=== PATIENT | female | born 1935 | race Caucasian/White ===

== ENCOUNTER 2018-08-31 16:10 | Inpatient (IN) | payer OTHER ==
[~2018-08-31] VITALS: Ht 152.4 cm; Wt 72.6 kg
[~2018-08-31 16:10] MED LIST: ACET325T9 PO; ACET500T68 PO; AMIT25TA PO; ASPI325T8 PO; ATOR20TA58 PO; BENZ100C PO; BUDE10.2 IH; CALC1TAB PO; CARV3.12 PO; CARV6.2511 PO; CHOL100013 PO; CILO100T PO; CLOP75TA57 PO; FURO-68 PO; GLUC100018 PO; MELA1TAB13 PO; MELA3TAB2 PO; OMEG300C PO; OMEP20CA5 PO; SENN1TAB15 PO
[2018-08-31 18:41] LABS: BASO % 0 % (0-3); EOS # 0.1 x10^3/uL (0.0-0.7); EOS % 1 % (0-3); HEMATOCRIT 32.7 % (36.0-47.0); HEMOGLOBIN 9.8 g/dL (12.0-15.5); LYMPH # 0.9 x10^3/uL (1.0-4.8); LYMPH % 11 % (24-48); MEAN CORPUSCULAR HEMOGLOBIN 23 pg (25-35); MEAN CORPUSCULAR HGB CONC 30 g/dL (31-37); MEAN CORPUSCULAR VOLUME 76 fL (79-100); MONO # 0.8 x10^3/uL (0.0-1.1); MONO % 11 % (0-9); NEUT # 6.1 x10^3uL (1.8-7.7); NEUT % 77 % (31-73); PLATELET COUNT 200 x10^3/uL (140-400); RED BLOOD COUNT 4.29 x10^6/uL (3.50-5.40); RED CELL DISTRIBUTION WIDTH 17.9 % (11.5-14.5); WHITE BLOOD COUNT 7.9 x10^3/uL (4.0-11.0)
--- NOTE | 2018-08-31 18:43 | PHYS DOC ---
Past Medical History Past Medical History: CAD, COPD, CVA, Diabetes-Type II, Heart Disease Additional Past Medical Histor: Kidney disease, Borderline diabetes, Pacemaker , thoracic aortic aneurysm Past Surgical History: Coronary Bypass Surgery, Pacemaker, Tonsillectomy, Other Additional Past Surgical Histo: D&C, Cataracts, Alcohol Use: None Drug Use: None Adult General Chief Complaint Chief Complaint: CONSTIPATION HPI HPI Patient is a 82 year old female who presents to the ER with complaints of constipation for over a week. Pt states that she took a stool softener one day last week and she had a small BM after that. She denies any rectal pain, rectal bleeding, abdominal pain, nausea, vomiting, diarrhea, fever, or dysuria. Pt states that she has had a slight cough with some sputum produced. She denies any shortness of breath or chest pain. Pt currently denies any pain. Review of Systems Review of Systems Constitutional: Denies fever or chills [] Eyes: Denies changes HENT: Denies nasal congestion or sore throat [] Respiratory: See HPI Cardiovascular: No additional information not addressed in HPI [] GI: Denies abdominal pain, nausea, vomiting, bloody stools or diarrhea; see HPI[ ] : Denies dysuria or hematuria [] Musculoskeletal: Denies back pain Integument: Denies rash Neurologic: Denies headache, focal weakness or sensory changes [] Complete systems were reviewed and found to be within normal limits, except as documented in this note. Current Medications Current Medications Current Medications Medications (Trade) Dose Ordered Sig/Issac Start Time Stop Time Status Last Admin Dose Admin Potassium Chloride (Klor-Con) 40 meq 1X ONCE 08/31/18 19:15 08/31/18 19:16 DC 08/31/18 19:17 40 MEQ Allergies Allergies Allergies Coded Allergies Type Severity Reaction Last Updated Verified Penicillins Allergy Intermediate 05/31/14 Yes hydroxychloroquine Allergy Intermediate 05/31/14 Yes Physical Exam Physical Exam Constitutional: Well developed, well nourished, no acute distress, non-toxic appearance. [] HENT: Normocephalic, atraumatic, bilateral external ears normal, oropharynx moist, nose normal. [] Eyes: conjunctiva normal, no discharge. [] Neck: Normal range of motion, no stridor. [] Cardiovascular:Heart rate regular rhythm, no murmur [] Lungs & Thorax: Bilateral breath sounds clear to auscultation in upper lobes and right lobes; diminished with crackle in left lower lobes, [] Abdomen: Bowel sounds normal, soft, no tenderness, no masses, no pulsatile masses. [] Skin: Warm, dry, no erythema, no rash. [] Extremities: No cyanosis, ROM intact, no edema. [] Neurologic: Alert and oriented X 3, no focal deficits noted. [] Psychologic: Affect normal, judgement normal, mood normal. [] Current Patient Data Vital Signs Vital Signs Date Time Temp Pulse Resp B/P (MAP) Pulse Ox O2 Delivery O2 Flow Rate FiO2 08/31/18 19:28 63 19 142/66 (91) 94 Room Air 08/31/18 16:50 98.0 98.0 Lab Values Laboratory Tests Test 08/31/18 18:30 White Blood Count 7.9 x10^3/uL (4.0-11.0) Red Blood Count 4.29 x10^6/uL (3.50-5.40) Hemoglobin 9.8 g/dL (12.0-15.5) L Hematocrit 32.7 % (36.0-47.0) L Mean Corpuscular Volume 76 fL (79-100) L Mean Corpuscular Hemoglobin 23 pg (25-35) L Mean Corpuscular Hemoglobin Concent 30 g/dL (31-37) L Red Cell Distribution Width 17.9 % (11.5-14.5) H Platelet Count 200 x10^3/uL (140-400) Neutrophils (%) (Auto) 77 % (31-73) H Lymphocytes (%) (Auto) 11 % (24-48) L Monocytes (%) (Auto) 11 % (0-9) H Eosinophils (%) (Auto) 1 % (0-3) Basophils (%) (Auto) 0 % (0-3) Neutrophils # (Auto) 6.1 x10^3uL (1.8-7.7) Lymphocytes # (Auto) 0.9 x10^3/uL (1.0-4.8) L Monocytes # (Auto) 0.8 x10^3/uL (0.0-1.1) Eosinophils # (Auto) 0.1 x10^3/uL (0.0-0.7) Basophils # (Auto) 0.0 x10^3/uL (0.0-0.2) Platelet Estimate Adequate (ADEQUATE) Polychromasia Slight Hypochromasia Slight Anisocytosis Slight Sodium Level 140 mmol/L (136-145) Potassium Level 2.5 mmol/L (3.5-5.1) *L Chloride Level 93 mmol/L (98-107) L Carbon Dioxide Level 36 mmol/L (21-32) H Anion Gap 11 (6-14) Blood Urea Nitrogen 75 mg/dL (7-20) H Creatinine 2.1 mg/dL (0.6-1.0) H Estimated GFR (Cockcroft-Gault) 22.5 BUN/Creatinine Ratio 36 (6-20) H Glucose Level 130 mg/dL (70-99) H Calcium Level 9.6 mg/dL (8.5-10.1) Magnesium Level 2.6 mg/dL (1.8-2.4) H Total Bilirubin 0.7 mg/dL (0.2-1.0) Aspartate Amino Transferase (AST) 20 U/L (15-37) Alanine Aminotransferase (ALT) 12 U/L (14-59) L Alkaline Phosphatase 94 U/L (46-116) Total Protein 8.2 g/dL (6.4-8.2) Albumin 3.9 g/dL (3.4-5.0) Albumin/Globulin Ratio 0.9 (1.0-1.7) L Thyroid Stimulating Hormone (TSH) 1.325 uIU/mL (0.358-3.74) Laboratory Tests 08/31/18 18:30 Laboratory Tests 08/31/18 18:30 EKG EKG [] Radiology/Procedures Radiology/Procedures PROCEDURE: KUB EXAM: PA and Lateral Views of the Chest DATE: 08/31/2018 6:41 PM INDICATION: CONSTIPATION, HX OF AORTIC ANEURYSM, PACEMAKER COMPARISON: No Prior FINDINGS: Moderate cardiomegaly. Aorta is tortuous. Emphysematous changes bilaterally. No lobar consolidation. Trace left pleural effusion. No pneumothorax. Biapical pleural/parenchymal/thickening. Cardiac generator pack obscures a portion of the left chest with leads in stable position. IMPRESSION: No evidence for acute cardiopulmonary process. EXAM: Supine AP view of the abdomen DATE: 08/31/2018 6:41 PM INDICATION: CONSTIPATION, HX OF AORTIC ANEURYSM, PACEMAKER COMPARISON: No Prior FINDINGS: No abnormal small or large bowel dilatation. Moderate colonic stool content. No abnormal soft tissue mass effect. No suspicious calcifications are seen. Evaluation for free intraperitoneal gas is limited on this supine exam. Right hip joint degenerative changes are seen. IMPRESSION: 1. No evidence for bowel obstruction. 2. Moderate colonic stool content is seen. [] Course & Med Decision Making Course & Med Decision Making Pertinent Labs and Imaging studies reviewed. (See chart for details) Dx: hypokalemia, CRF CXR showed no acute findings; KUB no bowel obstruction, moderate colonic stool present, hgb 9.8, hct 32.7, K+ 2.5, Cl 93, Bun 75, Nut Orchardist 2.1, Mg 2.6, TSh 1.325 Pt was given 40 meq of KCl in the ER and a stool softener was ordered per pt request. 1930- spoke with Dr. Spain who will admit patient for hypokalemia and CRF [] Dragon Disclaimer Dragon Disclaimer This electronic medical record was generated, in whole or in part, using a voice recognition dictation system. Departure Departure Impression: Primary Impression: Hypokalemia Additional Impression: CRF (chronic renal failure) Disposition: ADMITTED INPATIENT Admitting Physician: Gigi Spain Condition: STABLE Referrals: YOHAN COHEN MD (PCP) Problem Qualifiers Additional Impression: CRF (chronic renal failure) Chronic kidney disease stage: unspecified stage Qualified Codes: N18.9 - Chronic kidney disease, unspecified KELSEY DELGADO [facility] Aug 31, 2018 18:43
[2018-08-31 18:48] LABS: ALBUMIN 3.9 g/dL (3.4-5.0); ALBUMIN/GLOBULIN RATIO 0.9 (1.0-1.7); CALCIUM 9.6 mg/dL (8.5-10.1); CREATININE 2.1 mg/dL (0.6-1.0); GFR 22.5; TOTAL BILIRUBIN 0.7 mg/dL (0.2-1.0); TOTAL PROTEIN 8.2 g/dL (6.4-8.2)
[2018-08-31 18:55] LABS: POTASSIUM 2.5 mmol/L (3.5-5.1)
[2018-08-31 19:10] LABS: ANISOCYTOSIS SLIGHT; HYPOCHROMIA SLIGHT; PLT ESTIMATE ADEQUATE (ADEQUATE); POLYCHROMASIA SLIGHT
[2018-08-31] MEDS ORDERED: POTASSIUM CHLORIDE 20 MEQ TABLET.ER. PO ONE (19:15)
--- NOTE | 2018-08-31 20:27 | RAD ---
EXAM: PA and Lateral Views of the Chest DATE: 08/31/2018 6:41 PM INDICATION: CONSTIPATION, HX OF AORTIC ANEURYSM, PACEMAKER COMPARISON: No Prior FINDINGS: Moderate cardiomegaly. Aorta is tortuous. Emphysematous changes bilaterally. No lobar consolidation. Trace left pleural effusion. No pneumothorax. Biapical pleural/parenchymal/thickening. Cardiac generator pack obscures a portion of the left chest with leads in stable position. IMPRESSION: No evidence for acute cardiopulmonary process. EXAM: Supine AP view of the abdomen DATE: 08/31/2018 6:41 PM INDICATION: CONSTIPATION, HX OF AORTIC ANEURYSM, PACEMAKER COMPARISON: No Prior FINDINGS: No abnormal small or large bowel dilatation. Moderate colonic stool content. No abnormal soft tissue mass effect. No suspicious calcifications are seen. Evaluation for free intraperitoneal gas is limited on this supine exam. Right hip joint degenerative changes are seen. IMPRESSION: 1. No evidence for bowel obstruction. 2. Moderate colonic stool content is seen. Electronically signed by: Abdulaziz Cano MD (08/31/2018 8:25 PM) [facility]
[2018-08-31 21:10] VITALS: BP 152/67
--- NOTE | 2018-08-31 21:35 | NUR ---
pt admitted to room 400 from ED , admission care done, POC discussed with pt and pt verbalized understnading, Dr Spain contacted Re; home meds, he will address home meds in am , will cont to monitor.
[2018-08-31] MEDS ORDERED: BISACODYL 10 MG SUPP.RECT. PR ONE (21:45)
[2018-08-31] MEDS ORDERED: ACETAMINOPHEN 500 MG TABLET PO SCH (21:45)
[2018-08-31 23:00] VITALS: BP 140/68
[2018-08-31] MEDS ORDERED: ACET500T68 PO (23:24)
[2018-09-01] VITALS (7 sets, daily range): BP systolic 101–132; BP diastolic 36–58
[2018-09-01] MEDS ORDERED: METO2.5T PO (01:42)
[2018-09-01] MEDS ORDERED: ALLO100T PO (01:42)
[2018-09-01] MEDS ORDERED: DICL100G18 TP (01:42)
[2018-09-01] MEDS ORDERED: GABA-585 PO (01:42)
[2018-09-01] MEDS ORDERED: FLUT1DIS3 IH (01:42)
[2018-09-01] MEDS ORDERED: POTA20TA82 PO (01:42)
[2018-09-01] MEDS ORDERED: ACETAMINOPHEN 500 MG TABLET PO PRN (09:00)
[2018-09-01] MEDS ORDERED: CARVEDILOL 6.25 MG TABLET. PO SCH (09:00)
--- NOTE | 2018-09-01 09:00 | PDOC ---
Provider Note Provider Note [id number] FABIOLA ALFREDO MD Sep 01, 2018 09:00
--- NOTE | 2018-09-01 09:25 | NUR ---
Rehab screen completed. Pt would benefit from PT/OT eval and treat, please order if you agree. Addendum: 09/01/18 at 0926 by RIKI QUAN PT Amended: Links added.
[2018-09-01] MEDS: ACETAMINOPHEN 500 MG TABLET PO SCH ×2 (09:30→20:59)
[2018-09-01] MEDS: DOCUSATE SODIUM 100 MG CAPSULE. PO SCH (09:30)
[2018-09-01] MEDS: POTASSIUM CHLORIDE 10 MEQ TABLET.ER. PO SCH ×3 (09:31→17:25)
[2018-09-01] MEDS: POTASSIUM CL 20MEQ D5-0.45NACL 1,000 ML IV SCH ×2 (09:32→19:21)
--- NOTE | 2018-09-01 10:12 | HP ---
ADMIT DATE: 08/31/2018 CHIEF COMPLAINT: Constipation and weakness. HISTORY OF PRESENT ILLNESS: An 82-year-old white female, who has CKD, level uncertain, followed by Dr. Celeste and his nurse practitioner. She was recently placed on metolazone every day for edema in her right foot and since then has had increasing constipation and weakness. Potassium was low at 2.5 in the ER and creatinine was high, higher than normal for her and she was admitted for IV fluids and IV potassium and oral potassium replacement. PAST HISTORY: ALLERGIES: PENICILLIN. MEDICATIONS: Listed per the chart. She is taking both Lasix and metolazone at home along with other meds including gabapentin for restless legs. She has had thoracic aneurysm surgery and apparently still has another thoracic aneurysm present. She has also had a stroke in the past and takes Plavix for this. SOCIAL HISTORY: Nonsmoker, , lives with family, nondrinker. FAMILY HISTORY: Unremarkable. REVIEW OF SYSTEMS: No other complaints. OBJECTIVE: ENT: All within normal limits except mild pallor. NECK: No carotid bruits, nodes or JVD. LUNGS: Clear. CARDIOVASCULAR: Regular rate. No murmur. ABDOMEN: Soft, benign and nontender. EXTREMITIES: Reasonably good pedal pulses. Mild edema of the right foot. There is decreased pretibial turgor present bilaterally. NEUROLOGIC: Physiologic. ASSESSMENT: 1. Acute renal failure secondary to over diuresis from medications. 2. Hypokalemia, is contributing to constipation as well. PLAN: Continue IV fluids, potassium replacement and monitoring of renal function for recovery. FABIOLA ALFREDO MD DR: ABRIL/jean-paul JOB#: [id number] / [id number]
[2018-09-01 11:00] LABS: CALCIUM 9.5 mg/dL (8.5-10.1); CREATININE 2.2 mg/dL (0.6-1.0); GFR 21.4
[2018-09-01 11:05] LABS: POTASSIUM 2.8 mmol/L (3.5-5.1)
--- NOTE | 2018-09-01 13:12 | NUR ---
SW following. Discussed with RN, pt lives in alf. SW awaiting PT/OT to determine discharge recommendations.
[2018-09-01] MEDS: CARVEDILOL 6.25 MG TABLET. PO SCH (17:25)
[2018-09-01] MEDS: GABAPENTIN 100 MG CAPSULE. PO SCH (20:59)
[2018-09-02 03:05] VITALS: BP 134/57
--- NOTE | 2018-09-02 03:10 | NUR ---
Pt stated having sore on right heel, no open area. [place] foam dressing applied to right heel. Instructed to keep heels on pillow to prevent skin breakdown. Will continue to monitor.
[2018-09-02 05:10] LABS: HEMATOCRIT 27.9 % (36.0-47.0); HEMOGLOBIN 8.3 g/dL (12.0-15.5); RED BLOOD COUNT 3.65 x10^6/uL (3.50-5.40); RED CELL DISTRIBUTION WIDTH 18.2 % (11.5-14.5); WHITE BLOOD COUNT 5.9 x10^3/uL (4.0-11.0)
[2018-09-02 05:16] LABS: CALCIUM 8.4 mg/dL (8.5-10.1); GFR 23.9
--- NOTE | 2018-09-02 05:24 | NUR ---
Received critical lab results K- 2.9. Dr. Spain called. No new order.
[2018-09-02 07:00] VITALS: BP 131/49
--- NOTE | 2018-09-02 08:17 | PDOC ---
Provider Note Provider Note vss, good output, feels better but poor sleep- K+ 2.9, gfr slowly better- will inc po kcl, reduce fluids, likely dc in am FABIOLA ALFREDO MD Sep 02, 2018 08:17
[2018-09-02] MEDS: CLOPIDOGREL BISULFATE 75 MG TABLET PO SCH (08:26)
[2018-09-02] MEDS: CARVEDILOL 6.25 MG TABLET. PO SCH ×2 (08:27→17:14)
[2018-09-02] MEDS: DOCUSATE SODIUM 100 MG CAPSULE. PO SCH (08:28)
[2018-09-02] MEDS: POTASSIUM CHLORIDE 10 MEQ TABLET.ER. PO SCH ×3 (08:28→17:14)
[2018-09-02] MEDS: ACETAMINOPHEN 500 MG TABLET PO SCH ×2 (08:29→21:11)
[2018-09-02] MEDS: POTASSIUM CL 20MEQ D5-0.45NACL 1,000 ML IV SCH ×2 (08:29→10:30)
[2018-09-02] MEDS ORDERED: ALBUTEROL SULFATE 2.5 MG/3 ML NEBU. NEB PRN (08:30)
--- NOTE | 2018-09-02 09:56 | NUR ---
SW following. Discussed with RN, pt is from [facility], pt reports she is doing fine at home. SW awaiting PT/OT to determine discharge recommendations. RN advised possible discharge 09/03/18. SW will continue to follow.
[2018-09-02 11:00] VITALS: BP 137/49
--- NOTE | 2018-09-02 12:31 | NUR ---
SW following. PT/OT recommending home independent. No SW needs at this time. Anticipate discharge home tomorrow 09/03/18. SW will continue to follow.
[2018-09-02 15:00] VITALS: BP 140/53
[2018-09-02 19:00] VITALS: BP 168/53
[2018-09-02] MEDS ORDERED: TEMAZEPAM 7.5 MG CAPSULE PO SCH (21:00)
[2018-09-02] MEDS: GABAPENTIN 100 MG CAPSULE. PO SCH (21:11)
[2018-09-02 23:00] VITALS: BP_SYST 133; BP_SYST 147; BP_DIAS 34; BP_DIAS 85
[2018-09-03] MEDS: POTASSIUM CL 20MEQ D5-0.45NACL 1,000 ML IV SCH (02:46)
[2018-09-03 03:00] VITALS: BP 132/73
[2018-09-03 03:26] LABS: CALCIUM 8.4 mg/dL (8.5-10.1); CREATININE 1.2 mg/dL (0.6-1.0); POTASSIUM 3.5 mmol/L (3.5-5.1)
[2018-09-03 07:00] VITALS: BP 102/55
[2018-09-03 08:11] LABS: POTASSIUM 2.9 mmol/L (3.5-5.1)
--- NOTE | 2018-09-03 08:38 | PDOC ---
Provider Note Provider Note [id number] FABIOLA ALFREDO MD Sep 03, 2018 08:38
[2018-09-03] MEDS: DOCUSATE SODIUM 100 MG CAPSULE. PO SCH (10:41)
[2018-09-03] MEDS: CLOPIDOGREL BISULFATE 75 MG TABLET PO SCH (10:43)
[2018-09-03] MEDS: ACETAMINOPHEN 500 MG TABLET PO SCH (10:44)
[2018-09-03] MEDS: CARVEDILOL 6.25 MG TABLET. PO SCH (10:44)
[2018-09-03 11:00] VITALS: BP 130/66
--- NOTE | 2018-09-03 11:06 | NUR ---
SW following. Discussed with RN, pt should discharge home today self care, back to her [facility] apartment. No SW needs.
--- NOTE | 2018-09-03 13:14 | NUR ---
Pt was given dc packet and educational information over hypokalemia. No questions. Pt is to f/u with primary care provider and already has the appointment scheduled. VSS. Pt was taken to the main entrance by wc at 1220 by Martha CARREON.
--- NOTE | 2018-09-03 13:40 | DS ---
DATE OF DISCHARGE: 09/03/2018 HOSPITAL SUMMARY: The patient is an 82-year-old white female with a history of coronary artery disease and some degree of CKD who has been taking both Lasix and metolazone for 2 months under the direction of nurse practitioner with a hebrew teacher. She came in with increasing weakness, fatigue and constipation, was found to have a potassium of 2.5, creatinine elevated at 2.1, BUN 75 and GFR 22. Potassium came back up with hydration up to 3.5 and BUN declined to 36 and creatinine 1.2 at time of dismissal. TSH was normal as was the magnesium levels and liver function tests. Her hemoglobin was 9.8 on admission and hemoglobin was 8.3 prior to dismissal with MCV of 77, normal platelets and white count. She was given IV fluids and oral and IV potassium in the hospital and her diuretics were held. Renal function is improved to the point where back towards her baseline GFR of 43 is recovered. Etiology of the anemia is not clear at this time and will be evaluated as an outpatient. She also has symptoms of restless legs syndrome and that currently has been treated with gabapentin, but has never been tried on meds like Mirapex will be considered as an outpatient as well. FINAL DIAGNOSES: 1. Severe hypokalemia secondary to diuretic use. 2. Acute renal failure secondary to diuretic use. 3. Chronic kidney disease 3, improved. 4. Microcytic anemia, etiology undetermined. 5. Restless leg syndrome. OPERATIONS, PROCEDURES, COMPLICATIONS, AND CONSULTATIONS: None. DISPOSITION: She will stay off metolazone, will cut Lasix from 80 to 40 mg daily. Continue potassium and gabapentin for now. We will consider Mirapex for restless legs symptoms. Reevaluate her laboratory in 1 week and evaluate her microcytic anemia further as well. Also, consider injecting both of her knees for arthritis. She will stay off metolazone and has greater risk than benefit as she does not have congestive heart failure or reduced ejection fraction, just mild coronary artery disease. FABIOLA ALFREDO MD DR: ABRIL/jean-paul JOB#: [id number] / [id number]
== END 2018-09-03 12:20 | disposition home or self-care (01) | DRG 684 ==
LOC: ER 16:10 → 4 NORTH 19:35
PROVIDERS: ADMIT Family Medicine; ATTEND Family Medicine
DX: N17.9 Acute kidney failure, unspecified (principal); E87.6 Hypokalemia; T50.2X5A Adverse effect of carbonic-anhydrase inhibitors, benzothiadiazides and other diuretics, initial encounter; J44.9 Chronic obstructive pulmonary disease, unspecified; K59.00 Constipation, unspecified; D50.9 Iron deficiency anemia, unspecified; E11.22 Type 2 diabetes mellitus with diabetic chronic kidney disease; G25.81 Restless legs syndrome; I25.10 Atherosclerotic heart disease of native coronary artery without angina pectoris; N18.3 Chronic kidney disease, stage 3 (moderate); Z86.73 Personal history of transient ischemic attack (TIA), and cerebral infarction without residual deficits; Z95.1 Presence of aortocoronary bypass graft; Z88.0 Allergy status to penicillin; Z88.8 Allergy status to other drugs, medicaments and biological substances; Z90.49 Acquired absence of other specified parts of digestive tract; Y92.89 Other specified places as the place of occurrence of the external cause; D64.9 Anemia, unspecified
CPT/HCPCS: 36415; 71046; 74018; 80048; 80053; 82962; 83735; 84443; 85025; 85027; 94640; 94760; J7613; 97535; 99285-25

== ENCOUNTER 2019-06-19 19:18 | Emergency (ER) | payer MEDICARE, OTHER ==
[~2019-06-19 19:18] MED LIST changes: +ALLO100T PO; +DICL100G18 TP; +FLUT1DIS3 IH; +GABA-585 PO; -MELA3TAB2 PO; +MELA3TAB56 PO; +METO2.5T PO; +POTA20TA4 PO
--- NOTE | 2019-06-19 19:44 | PHYS DOC ---
Past Medical History Past Medical History: CAD, COPD, CVA, Diabetes-Type II, Heart Disease Additional Past Medical Histor: Kidney disease, Borderline diabetes, Pacemaker, thoracic aortic aneurysm Past Surgical History: Coronary Bypass Surgery, Pacemaker, Tonsillectomy, Other Additional Past Surgical Histo: D&C, Cataracts, Alcohol Use: None Drug Use: None Adult General Chief Complaint Chief Complaint: CHEST PAIN HPI HPI 83-year-old female with known history of hypertension, vascular disease including that of thoracic aneurysms, CVA, currently on hospice presents to the emergency Department complaints of left-sided chest pain and no radiation. States started about 5:30, this is been intermittent. She currently has no pain on examination. She does describe shortness of breath however is chronically on O2 at night. She denies any nausea or vomiting on examination. Unsure why she is on hospice, will contact [facility] for further discussion. Patient states nothing makes her pain worse, nothing makes her pain better. Her aneurysms that are covered above, patient states she's elected no surgical intervention. Review of Systems Review of Systems Constitutional: Denies fever or chills [] Respiratory: +SOB Cardiovascular: No additional information not addressed in HPI [] GI: Denies abdominal pain, nausea, vomiting, bloody stools or diarrhea [] Musculoskeletal: Denies back pain or joint pain [] Integument: Denies rash or skin lesions [] Neurologic: Denies headache, focal weakness or sensory changes [] All other systems were reviewed and found to be within normal limits, except as documented in this note. Current Medications Current Medications Current Medications Medications (Trade) Dose Ordered Sig/[facility] Start Time Stop Time Status Last Admin Dose Admin Aspirin (Children'S Aspirin) 324 mg 1X ONCE 06/19/19 20:00 06/19/19 20:01 DC 06/19/19 19:43 324 MG Ketorolac Tromethamine (Toradol 15mg Vial) 15 mg 1X ONCE 06/19/19 21:15 06/19/19 21:16 UNV Nitroglycerin (Nitrostat) 0.4 mg PRN Q5MIN PRN 06/19/19 19:45 06/20/19 19:44 06/19/19 19:43 0.4 MG Allergies Allergies Allergies Coded Allergies Type Severity Reaction Last Updated Verified Penicillins Allergy Intermediate 05/31/14 Yes hydroxychloroquine Allergy Intermediate 05/31/14 Yes Physical Exam Physical Exam Constitutional: Well developed, well nourished, mild distress, non-toxic appearance. [] HENT: Normocephalic, atraumatic, bilateral external ears normal, oropharynx moist, no oral exudates, nose normal. [] Eyes: PERRLA, EOMI, conjunctiva normal, no discharge. [] Cardiovascular:Heart rate regular rhythm, no murmur [] Lungs & Thorax: Bilateral breath sounds clear to auscultation [] Abdomen: Bowel sounds normal, soft, no tenderness, no masses, no pulsatile m asses. [] Skin: Warm, dry, no erythema, no rash. [] Back: No tenderness, no CVA tenderness. [] Extremities: No tenderness, no edema. [] Neurologic: Alert and oriented X 3, no focal deficits noted. [] Psychologic: Affect normal, judgement normal, mood normal. [] Current Patient Data Vital Signs Vital Signs Date Time Temp Pulse Resp B/P (MAP) Pulse Ox O2 Delivery O2 Flow Rate FiO2 06/19/19 19:43 76 146/112 06/19/19 19:18 97.9 18 96 Room Air 97.9 Lab Values Laboratory Tests Test 06/19/19 19:51 06/19/19 20:15 White Blood Count 4.8 x10^3/uL (4.0-11.0) Red Blood Count 4.44 x10^6/uL (3.50-5.40) Hemoglobin 13.0 g/dL (12.0-15.5) Hematocrit 40.6 % (36.0-47.0) Mean Corpuscular Volume 92 fL (79-100) Mean Corpuscular Hemoglobin 29 pg (25-35) Mean Corpuscular Hemoglobin Concent 32 g/dL (31-37) Red Cell Distribution Width 14.8 % (11.5-14.5) H Platelet Count 134 x10^3/uL (140-400) L Neutrophils (%) (Auto) 66 % (31-73) Lymphocytes (%) (Auto) 18 % (24-48) L Monocytes (%) (Auto) 12 % (0-9) H Eosinophils (%) (Auto) 2 % (0-3) Basophils (%) (Auto) 1 % (0-3) Neutrophils # (Auto) 3.1 x10^3/uL (1.8-7.7) Lymphocytes # (Auto) 0.9 x10^3/uL (1.0-4.8) L Monocytes # (Auto) 0.6 x10^3/uL (0.0-1.1) Eosinophils # (Auto) 0.1 x10^3/uL (0.0-0.7) Basophils # (Auto) 0.1 x10^3/uL (0.0-0.2) Sodium Level 142 mmol/L (136-145) Potassium Level 4.0 mmol/L (3.5-5.1) Chloride Level 103 mmol/L (98-107) Carbon Dioxide Level 37 mmol/L (21-32) H Anion Gap 2 (6-14) L Blood Urea Nitrogen 22 mg/dL (7-20) H Creatinine 1.3 mg/dL (0.6-1.0) H Estimated GFR (Cockcroft-Gault) 39.1 BUN/Creatinine Ratio 17 (6-20) Glucose Level 107 mg/dL (70-99) H Calcium Level 9.4 mg/dL (8.5-10.1) Total Bilirubin 0.4 mg/dL (0.2-1.0) Aspartate Amino Transferase (AST) 15 U/L (15-37) Alanine Aminotransferase (ALT) 11 U/L (14-59) L Alkaline Phosphatase 70 U/L (46-116) Troponin I Quantitative < 0.017 ng/mL (0.000-0.055) [id number]-Type Natriuretic Peptide 1035 pg/mL (0-449) H Total Protein 6.2 g/dL (6.4-8.2) L Albumin 3.5 g/dL (3.4-5.0) Albumin/Globulin Ratio 1.3 (1.0-1.7) Laboratory Tests 06/19/19 19:51 Laboratory Tests 06/19/19 20:15 EKG EKG EKG reviewed, sinus rhythm, no evidence of ST elevation [place], RVH appreciated right bundle-branch block appreciated. Interpretation time 192[] Radiology/Procedures Radiology/Procedures [facility] [address] [place] [address] IMAGING REPORT Signed PATIENT: JESSE HARPER: [id number] : 1935 LOCATION: ER AGE: 83 SEX: F EXAM STATUS: PRE ER ORD. PHYSICIAN: CHARLETTE COREY MD REASON: chest pain PROCEDURE: PORTABLE CHEST 1V PORTABLE CHEST 1V History: Chest pain COMPARISON: 08/31/2018 FINDINGS: Severe aortic ectasia and tortuosity is again seen. Enlargement of the cardiac silhouette is again seen. Deviation of the trachea to the right appears similar. Pacemaker defibrillator device is again identified. Mild hazy opacity in the left lower lung is stable. No new lobar airspace consolidation. No large pleural effusion. No evidence of pneumothorax. Bones appear grossly intact. IMPRESSION: No significant change in the appearance of the chest. Electronically signed by: Faisal No MD (06/19/2019 8:18 PM) [facility] DICTATED and SIGNED BY: FAISAL NO MD DATE: 06/19/19 2018 [] Course & Med Decision Making Course & Med Decision Making Pertinent Labs and Imaging studies reviewed. (See chart for details) []83-year-old female with known history of hypertension, vascular disease including that of thoracic aneurysms, CVA, currently on hospice presents to the emergency Department complaints of left-sided chest pain and no radiation. States started about 5:30, this is been intermittent. She currently has no pain on examination. She does describe shortness of breath however is chronically on O2 at night. She denies any nausea or vomiting on examination. Unsure why she is on hospice, will contact [facility] for further discussion. Patient states nothing makes her pain worse, nothing makes her pain better. Her aneurysms that are covered above, patient states she's elected no surgical intervention. Discussed with hospice, patient is on palliative care and now hospice care secondary to congestive heart failure, she's been ambulating with sats of 79% and currently on chronic oxygen therapy. Discussed if patient is admitted, she will be removed from hospice care. We'll let her nurse know Sherine at [phone], [phone], [phone]. Laboratory values reviewed , negative, BNP mildly elevated, chest x-ray reviewed without evidence of new consolidation or effusion she has left haziness to his present however has been present with comparison. She provided with Toradol 15 mg IV 1 Discussed findings with Brenna Basurto palliative hospice care. Recommend discharge home, she will have weekend nurseJarett, see patient tomorrow We discussed addition of nitroglycerin versus Imdur. Patient is in agreement with dc plan Dragon Disclaimer Dragon Disclaimer This electronic medical record was generated, in whole or in part, using a voice recognition dictation system. Departure Departure Impression: Primary Impression: Chest pain Additional Impression: Chronic CHF Disposition: HOME, SELF-CARE Condition: STABLE Referrals: YOHAN COHEN MD (PCP) Patient Instructions: Chest Pain (Nonspecific), Heart Failure, [id number] Additional Instructions: Recommend follow up with PCP 3 - 5 days Return to the ER with worsening symptoms, intractable pain, fever, altered mental status Tylenol/Motrin as needed for pain Discussed lab and x-ray findings with patient as well as hospice nurse, Sherine Recommend discharge home, weekend hospice nurseJarett, will see patient tomorrow Problem Qualifiers Primary Impression: Chest pain Chest pain type: unspecified Qualified Codes: R07.9 - Chest pain, unspecified Additional Impression: Chronic CHF Heart failure type: systolic Qualified Codes: I50.22 - Chronic systolic (congestive) heart failure CHARLETTE COREY MD Jun 19, 2019 19:44
[2019-06-19] MEDS ORDERED: NITROGLYCERIN SUBLINGUAL 0.4 MG BOTTLE OF 25. SL PRN (19:45)
[2019-06-19 19:59] LABS: BASO # 0.1 x10^3/uL (0.0-0.2); BASO % 1 % (0-3); EOS # 0.1 x10^3/uL (0.0-0.7); EOS % 2 % (0-3); HEMATOCRIT 40.6 % (36.0-47.0); LYMPH # 0.9 x10^3/uL (1.0-4.8); LYMPH % 18 % (24-48); MEAN CORPUSCULAR HEMOGLOBIN 29 pg (25-35); MEAN CORPUSCULAR HGB CONC 32 g/dL (31-37); MEAN CORPUSCULAR VOLUME 92 fL (79-100); MONO # 0.6 x10^3/uL (0.0-1.1); MONO % 12 % (0-9); NEUT # 3.1 x10^3/uL (1.8-7.7); NEUT % 66 % (31-73); PLATELET COUNT 134 x10^3/uL (140-400); RED BLOOD COUNT 4.44 x10^6/uL (3.50-5.40); RED CELL DISTRIBUTION WIDTH 14.8 % (11.5-14.5); WHITE BLOOD COUNT 4.8 x10^3/uL (4.0-11.0)
[2019-06-19] MEDS ORDERED: ASPIRIN CHEWABLE 81 MG TABLET. PO ONE (20:00)
--- NOTE | 2019-06-19 20:21 | RAD ---
PORTABLE CHEST 1V History: Chest pain COMPARISON: 08/31/2018 FINDINGS: Severe aortic ectasia and tortuosity is again seen. Enlargement of the cardiac silhouette is again seen. Deviation of the trachea to the right appears similar. Pacemaker defibrillator device is again identified. Mild hazy opacity in the left lower lung is stable. No new lobar airspace consolidation. No large pleural effusion. No evidence of pneumothorax. Bones appear grossly intact. IMPRESSION: No significant change in the appearance of the chest. Electronically signed by: Faisal No MD (06/19/2019 8:18 PM) [facility]
[2019-06-19 20:30] LABS: CALCIUM 9.4 mg/dL (8.5-10.1); CREATININE 1.3 mg/dL (0.6-1.0); GFR 39.1
[2019-06-19 20:36] LABS: ALBUMIN 3.5 g/dL (3.4-5.0); ALBUMIN/GLOBULIN RATIO 1.3 (1.0-1.7); TOTAL BILIRUBIN 0.4 mg/dL (0.2-1.0); TOTAL PROTEIN 6.2 g/dL (6.4-8.2)
[2019-06-19 21:10] VITALS: BP 157/80
[2019-06-19] MEDS ORDERED: KETOROLAC 15 MG/ML VIAL. IVP ONE (21:15)
--- NOTE | 2019-06-21 08:55 | EKG ---
[facility] [address] [place] [address] Test Date: 2019-06-19 Test Time: 19:21:14 Pat Name: JESSE HARPER Department: Room: Gender: F Customer Project Manager: : 1935 Requested By: CHARLETTE COREY Order Number: [id number] Reading MD: Measurements Intervals [place] Rate: 83 P: 0 SC: 124 QRS: -120 QRSD: 146 T: 113 QT: 408 QTc: 486 Interpretive Statements SINUS RHYTHM ABNORMAL RIGHT SUPERIOR AXIS DEVIATION LEFT ANTERIOR FASCICULAR BLOCK RIGHT BUNDLE BRANCH BLOCK BIFASCICULAR BLOCK RVH WITH REPOLARIZATION ABNORMALITY ABNORMAL ECG RI6.01 No previous ECG available for comparison
== END 2019-06-19 21:15 | disposition home or self-care (01) ==
LOC: ER 19:18
DX: R07.89 Other chest pain (principal); I11.0 Hypertensive heart disease with heart failure; I50.22 Chronic systolic (congestive) heart failure; J44.9 Chronic obstructive pulmonary disease, unspecified; E11.9 Type 2 diabetes mellitus without complications; I71.2 Thoracic aortic aneurysm, without rupture; I25.10 Atherosclerotic heart disease of native coronary artery without angina pectoris; Z86.73 Personal history of transient ischemic attack (TIA), and cerebral infarction without residual deficits; Z95.0 Presence of cardiac pacemaker; Z95.1 Presence of aortocoronary bypass graft; Z88.0 Allergy status to penicillin; Z88.8 Allergy status to other drugs, medicaments and biological substances
CPT/HCPCS: 36415; 71045; 80053; 83880; 84484; 85025; 93005; 99285-25

== ENCOUNTER 2020-07-29 11:43 | Emergency (ER) | payer MEDICARE ==
[~2020-07-29] VITALS: Ht 154.9 cm; Wt 69.5 kg
[~2020-07-29 11:43] MED LIST changes: -DICL100G18 TP; +DICL100G54 TP; +MELA3TAB4 PO; -MELA3TAB56 PO
[2020-07-29 12:14] LABS: BASO % 1 % (0-3); EOS # 0.2 x10^3/uL (0.0-0.7); EOS % 5 % (0-3); HEMATOCRIT 32.6 % (36.0-47.0); HEMOGLOBIN 10.2 g/dL (12.0-15.5); LYMPH # 0.9 x10^3/uL (1.0-4.8); LYMPH % 23 % (24-48); MEAN CORPUSCULAR HEMOGLOBIN 29 pg (25-35); MEAN CORPUSCULAR HGB CONC 31 g/dL (31-37); MEAN CORPUSCULAR VOLUME 93 fL (79-100); MONO # 0.5 x10^3/uL (0.0-1.1); MONO % 14 % (0-9); NEUT # 2.2 x10^3/uL (1.8-7.7); NEUT % 58 % (31-73); PLATELET COUNT 145 x10^3/uL (140-400); RED CELL DISTRIBUTION WIDTH 16.6 % (11.5-14.5); WHITE BLOOD COUNT 3.8 x10^3/uL (4.0-11.0)
[2020-07-29] MEDS: MECLIZINE HCL 12.5 MG TABLET. PO ONE ×2 (12:15→13:29)
[2020-07-29 12:30] LABS: ALBUMIN 2.6 g/dL (3.4-5.0); ALBUMIN/GLOBULIN RATIO 0.9 (1.0-1.7); CALCIUM 8.6 mg/dL (8.5-10.1); CREATININE 1.7 mg/dL (0.6-1.0); GFR 28.6; MAGNESIUM 1.6 mg/dL (1.8-2.4); TOTAL BILIRUBIN 0.4 mg/dL (0.2-1.0); TOTAL PROTEIN 5.6 g/dL (6.4-8.2)
[2020-07-29] MEDS ORDERED: PROCHLORPERAZINE 10 MG/2 ML VIAL. IV ONE (12:30)
[2020-07-29 12:32] LABS: POTASSIUM 2.8 mmol/L (3.5-5.1)
[2020-07-29] MEDS ORDERED: POTASSIUM CHLORIDE 20 MEQ TABLET.ER. PO ONE (12:45)
[2020-07-29 12:48] LABS: CREATINE KINASE 36 U/L (26-192)
--- NOTE | 2020-07-29 13:08 | RAD ---
INDICATION: Reason: dizziness / Spl. Instructions: / History: COMPARISON: April 2014 TECHNIQUE: Axial CT images obtained through the head without intravenous contrast. One or more of the following individualized dose reduction techniques were utilized for this examinat ion: 1. Automated exposure control; 2. Adjustment of the mA and/or kV according to patient size; 3 . Use of iterative reconstruction technique. FINDINGS: No intracranial hemorrhage. No midline shift. Basal cisterns patents. Ventricles and sulci are globally prominent. No acute osseous abnormality. Orbits and paranasal sinuses unremarkable. Scattered foci of low attenuation within the white matter. IMPRESSION: 1. No acute intracranial hemorrhage. 2. Scattered regions of low attenuation within the white matter. Non-specific in nature but frequen tly secondary to small vessel ischemic disease. There is also some evidence of prior lacunar infarcts including adjacent to left lateral ventricle. If there is high clinical concern for acute etiology M RI could better assess whether any of the foci of low density within the white matter are acute or if these are all secondary to gliosis from prior chronic small vessel ischemic disease. 3. Prominence of ventricles and sulci which is frequently secondary to age related volume loss. Electronically signed by: Saud Spain MD (07/29/2020 1:05 PM) [id number]
--- NOTE | 2020-07-29 13:40 | ED.ADGEN ---
Past Medical History Past Medical History: CAD, COPD, CVA, Diabetes-Type II, Heart Disease Additional Past Medical Histor: Kidney disease, Borderline diabetes, A/VPacemaker, thoracic aortic aneurysm Past Medical History vertigo, on hospice for CHF Past Surgical History: Coronary Bypass Surgery, Pacemaker, Tonsillectomy, Other Additional Past Surgical Histo: D&C, Cataracts, Smoking Status: Never Smoker Alcohol Use: None Drug Use: None General Adult EDM: Chief Complaint: NAUSEA/VOMITING/DIARRHA HPI: HPI: Patient is a 84 year old female, currently on hospice for congestive heart failure, who presents to the emergency room via EMS today with reports of dizziness when she opens her eyes, nausea, and vomiting. Patient was up to the bathroom when she began to feel more dizzy and began vomiting. Patient denies any difficulty speaking, she is alert and oriented x4. Limited HPI due to the patient's condition, patient states she does not feel well and does not know what is wrong with her. Patient reports that if she opens her eyes the room starts spinning. Spoke with the patient's hospice nurse Kassandra Adan who reported that the patient has had increased confusion over the last few weeks she is currently taking 5 mg of metolazone daily and 40 mg of Lasix twice a day. The patient also takes a potassium supplement. 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 At bedside states that when she visited her mother yesterday had a left she seemed to want to keep her eyes closed but did not complain of any dizziness. Family denies any known fever and reports that the patient does have a history of vertigo.. Review of Systems: Review of Systems: Complete ROS is negative unless otherwise noted in HPI. Current Medications: Current Medications Medications (Trade) Dose Ordered Sig/Issac Start Time Stop Time Status Last Admin Dose Admin Meclizine HCl (Antivert) 25 mg 1X ONCE 07/29/20 12:30 07/29/20 12:31 DC 07/29/20 13:29 25 MG Potassium Chloride (Klor-Con) 40 meq 1X ONCE 07/29/20 12:45 07/29/20 12:46 DC 07/29/20 14:33 40 MEQ Prochlorperazine Edisylate (Compazine) 10 mg 1X ONCE 07/29/20 12:30 07/29/20 12:31 DC 07/29/20 12:28 10 MG Allergies: Allergies: Allergies Coded Allergies Type Severity Reaction Last Updated Verified Penicillins Allergy Intermediate 05/31/14 Yes hydroxychloroquine Allergy Intermediate 05/31/14 Yes Physical Exam: PE: See Above Constitutional: Well developed, well nourished, no acute distress, non-toxic appearance. [] HENT: Normocephalic, atraumatic, bilateral external ears normal, oropharynx moist, no oral exudates, nose normal. [] Eyes: PERRLA, EOMI, conjunctiva normal, no discharge. [] Neck: Normal range of motion, no tenderness, supple, no stridor. [] Cardiovascular:Heart rate regular rhythm, no murmur [] Lungs & Thorax: Bilateral breath sounds clear to auscultation [] Abdomen: Bowel sounds normal, soft, no tenderness, no masses, no pulsatile masses. [] Skin: Warm, dry, no erythema, no rash. [] Back: No tenderness, no CVA tenderness. [] Extremities: No tenderness, no cyanosis, no clubbing, ROM intact, no edema. [] Neurologic: Alert and oriented X 3, normal motor function, normal sensory function, no focal deficits noted. [] Psychologic: Affect normal, judgement normal, mood normal. [] Current Patient Data: Labs: Laboratory Tests Test 07/29/20 12:00 White Blood Count 3.8 x10^3/uL (4.0-11.0) L Red Blood Count 3.50 x10^6/uL (3.50-5.40) Hemoglobin 10.2 g/dL (12.0-15.5) L Hematocrit 32.6 % (36.0-47.0) L Mean Corpuscular Volume 93 fL (79-100) Mean Corpuscular Hemoglobin 29 pg (25-35) Mean Corpuscular Hemoglobin Concent 31 g/dL (31-37) Red Cell Distribution Width 16.6 % (11.5-14.5) H Platelet Count 145 x10^3/uL (140-400) Neutrophils (%) (Auto) 58 % (31-73) Lymphocytes (%) (Auto) 23 % (24-48) L Monocytes (%) (Auto) 14 % (0-9) H Eosinophils (%) (Auto) 5 % (0-3) H Basophils (%) (Auto) 1 % (0-3) Neutrophils # (Auto) 2.2 x10^3/uL (1.8-7.7) Lymphocytes # (Auto) 0.9 x10^3/uL (1.0-4.8) L Monocytes # (Auto) 0.5 x10^3/uL (0.0-1.1) Eosinophils # (Auto) 0.2 x10^3/uL (0.0-0.7) Basophils # (Auto) 0.0 x10^3/uL (0.0-0.2) Sodium Level 146 mmol/L (136-145) H Potassium Level 2.8 mmol/L (3.5-5.1) *L Chloride Level 100 mmol/L (98-107) Carbon Dioxide Level 38 mmol/L (21-32) H Anion Gap 8 (6-14) Blood Urea Nitrogen 37 mg/dL (7-20) H Creatinine 1.7 mg/dL (0.6-1.0) H Estimated GFR (Cockcroft-Gault) 28.6 BUN/Creatinine Ratio 22 (6-20) H Glucose Level 132 mg/dL (70-99) H Calcium Level 8.6 mg/dL (8.5-10.1) Magnesium Level 1.6 mg/dL (1.8-2.4) L Total Bilirubin 0.4 mg/dL (0.2-1.0) Aspartate Amino Transferase (AST) 19 U/L (15-37) Alanine Aminotransferase (ALT) 17 U/L (14-59) Alkaline Phosphatase 69 U/L (46-116) Creatine Kinase 36 U/L (26-192) Creatine Kinase MB (Mass) < 0.5 ng/mL (0.0-3.6) Creatine Kinase MB Relative Index % (0-4) Troponin I Quantitative < 0.017 ng/mL (0.000-0.055) DW-Dfg-O-Type Natriuretic Peptide 1830 pg/mL (0-449) H Total Protein 5.6 g/dL (6.4-8.2) L Albumin 2.6 g/dL (3.4-5.0) L Albumin/Globulin Ratio 0.9 (1.0-1.7) L Laboratory Tests 07/29/20 12:00 Laboratory Tests 07/29/20 12:00 Vital Signs: Vital Signs Date Time Temp Pulse Resp B/P (MAP) Pulse Ox O2 Delivery O2 Flow Rate FiO2 07/29/20 14:00 62 23 133/77 (95) 98 Room Air 07/29/20 11:43 97.6 2.0 97.6 EKG: EKG: [] Heart Score: Risk Factors: Risk Factors: DM, Current or recent (<one month) smoker, HTN, HLP, family hi story of CAD, obesity. Risk Scores: Score 0 - 3: 2.5% MACE over next 6 weeks - Discharge Home Score 4 - 6: 20.3% MACE over next 6 weeks - Admit for Clinical Observation Score 7 - 10: 72.7% MACE over next 6 weeks - Early Invasive Strategies Radiology/Procedures: Radiology/Procedures: PROCEDURE: CT HEAD WO CONTRAST INDICATION: Reason: dizziness / Spl. Instructions: / History: COMPARISON: April 2014 TECHNIQUE: Axial CT images obtained through the head without intravenous contrast. One or more of the following individualized dose reduction techniques were utilized for this examination: 1. Automated exposure control; 2. Adjustment of the mA and/or kV according to patient size; 3. Use of iterative reconstruction technique. FINDINGS: No intracranial hemorrhage. No midline shift. Basal cisterns patents. Ventricles and sulci are globally prominent. No acute osseous abnormality. Orbits and paranasal sinuses unremarkable. Scattered foci of low attenuation within the white matter. IMPRESSION: 1. No acute intracranial hemorrhage. 2. Scattered regions of low attenuation within the white matter. Non-specific in nature but frequently secondary to small vessel ischemic disease. There is also some evidence of prior lacunar infarcts including adjacent to left lateral ventricle. If there is high clinical concern for acute etiology MRI could better assess whether any of the foci of low density within the white matter are acute or if these are all secondary to gliosis from prior chronic small vessel ischemic disease. 3. Prominence of ventricles and sulci which is frequently secondary to age related volume loss. Electronically signed by: Saud Spain MD (07/29/2020 1:05 PM) [id number][] Course & Med Decision Making: Course & Med Decision Making Pertinent Labs and Imaging studies reviewed. (See chart for details) [] 4-year-old female currently CHF presents emergency room with complaints of dizziness, nausea, and vomiting. Patient was given meclizine in the emergency department and antiemetics. She reported feeling better after medications reporting resolution of the vertigo after the meclizine. Vital signs are stable throughout the emergency department visit. I spoke with the patient's hospice nurse, Kassandra, and advised her that the patient is to double her potassium for the next 5 days. Recommend follow-up with primary care doctor next week, return to the ER symptoms worsen. Prescription written for meclizine. Patient and her family verbalized an understanding of home care, medications, follow-up, and return to ED instructions and were in agreement with the plan of care. Dragon Disclaimer: Dragon Disclaimer: This electronic medical record was generated, in whole or in part, using a voice recognition dictation system. Departure Departure Impression: Primary Impression: Vertigo Additional Impressions: CRF (chronic renal failure) Hypokalemia Disposition: 01 DC HOME SELF CARE/HOMELESS Condition: STABLE Referrals: YOHAN COHEN MD (PCP) Patient Instructions: Hypokalemia-Brief, Vertigo, [id number] Additional Instructions: Fill the prescription and take as directed. Be sure to have a family member stay with your. Double your home potassium for the next 5 days. Follow up with your primary care doctor next week, return to the ER if symptoms worsen or fever develops. Scripts Meclizine Hcl (VERTICALM) 25 Mg Tablet 25 MG PO Q8HRS PRN for DIZZINESS for 10 Days, #30 TAB 0 Refills Prov: KELSEY DELGADO APRN 07/29/20 Problem Qualifiers Additional Impressions: CRF (chronic renal failure) Chronic kidney disease stage: unspecified stage Qualified Codes: N18.9 - Chronic kidney disease, unspecified KELSEY DELGADO APRN Jul 29, 2020 13:40
[2020-07-29 14:00] VITALS: BP 133/77
[2020-07-29] MEDS ORDERED: [UNRECOGNIZED DRUG - CODE] PO (15:02)
--- NOTE | 2020-07-29 19:09 | EKG ---
[facility] [address] [place] [address] Test Date: 2020-07-29 Test Time: 12:21:53 Pat Name: JESSE HARPER Department: Room: Gender: F Director Of Career Resources: : 1935 Requested By: KELSEY DELGADO Order Number: [id number] Reading MD: Measurements Intervals [place] Rate: 60 P: VA: QRS: -42 QRSD: 92 T: 117 QT: 498 QTc: 498 Interpretive Statements IRREGULAR RHYTHM, NO P-WAVE FOUND ABNORMAL LEFT AXIS DEVIATION CONSIDER LEFT VENTRICULAR HYPERTROPHY ST ABNORMALITY, POSSIBLE INFERIOR SUBENDOCARDIAL INJURY PROLONGED QT ABNORMAL ECG RI6.01 No previous ECG available for comparison
== END 2020-07-29 15:26 | disposition home or self-care (01) ==
LOC: ER 11:43
DX: R42 Dizziness and giddiness (principal); E11.22 Type 2 diabetes mellitus with diabetic chronic kidney disease; I13.0 Hypertensive heart and chronic kidney disease with heart failure and stage 1 through stage 4 chronic kidney disease, or unspecified chronic kidney disease; N18.9 Chronic kidney disease, unspecified; I50.9 Heart failure, unspecified; J44.9 Chronic obstructive pulmonary disease, unspecified; I25.10 Atherosclerotic heart disease of native coronary artery without angina pectoris; Z86.73 Personal history of transient ischemic attack (TIA), and cerebral infarction without residual deficits; Z95.0 Presence of cardiac pacemaker; Z95.1 Presence of aortocoronary bypass graft; Z88.0 Allergy status to penicillin; Z88.8 Allergy status to other drugs, medicaments and biological substances
CPT/HCPCS: 36415; 70450; 80053; 82553; 83735; 83880; 84484; 85025; 93005; 96374; 99285; J0780; J8597